=== PATIENT | male | born 1955 | race Caucasian/White ===

== ENCOUNTER 2017-11-02 11:18 | Outpatient (CLI) | payer BC, MEDICARE ==
[~2017-11-02] VITALS: Ht 172.7 cm; Wt 100.0 kg
--- NOTE | ~2017-11-02 | HEMODYNAMI ---
PATIENT:TRISTAN FERNANDEZ MEDICAL RECORD: [id number] : 57 LOCATION:[facility] ADMISSION DATE: 11/02/17 Generatedon:11/02/201714:30 Patient name: TRISTAN FERNANDEZ Patient #: [id number] SSN: DO B: 1955 Date of study: 11/02/2017 Page: Of Hemodynamic Procedure Report Patient Data Patient Demographics Procedure consent was obtained First Name: TRISTAN Gender: Male Last Name: JIM : 1955 [facility] Initial: NILDA Age: 62 year(s) Patient #: [id number] Race: Unknown Additional ID: [id number] Contact details Address: [address] [place] [address] [place] State: [place] City: [facility] Zip code: [address] Past Medical History Allergies Allergen Reaction Date Comments Reported Other allergy 11/02/2017 BETA BLOCKERS, STATINS, MORPHINE Admission Admission Data Admission Date: 11/02/2017 Admission Time: 11:18 Lab Results Lab Result Date: 11/02/2017 Lab Result Time: 0:00 Biochemistry Name Units Result Min Max BUN mg/dl 16 --(---*)-- 7 18 Creatinine mg/dl 1 --(--*-)-- 0.6 1.3 CBC Name Units Result Min Max Hemoglobin g/dl 15.3 --(-*--)-- 13.5 17.5 Procedure Procedure Types Cath Procedure Diagnostic Procedure [facility] w/Coronaries w/Grafts Sedation Charges Moderate Sedation up to 15 minutes Procedure Description Procedure Date Procedure Date: 11/02/2017 Procedure Start Time: 14:09 Procedure End Time: 14:28 Procedure Staff Name Function Vito Armas MD Performing Physician Chioma Shelton RT Monitor Yousuf Valentine RT Scrub Lyle Stewart RN Nurse Procedure Data Cath Procedure Fluoroscopy Diagnostic fluoroscopy Total fluoroscopy Time: 3.7 time: 3.7 min min Diagnostic fluoroscopy Total fluoroscopy dose: 761 dose: 761 mGy mGy Contrast Material Contrast Material Type Amount (ml) Isovue 300 86 Entry Location Entry Primary Successful Side Size Upsize Upsize Entry Closure Succes sful Closure Location (Fr) 1 (Fr) 2 (Fr) Remarks Device Remarks Femoral Right 5 Fr Exoseal artery Estimated blood loss: 5 ml Diagnostic catheters Device Type Used For End Catheter Placement MULTIPACK JL 4.0 5Fr Procedure catheter DIAGNOSTIC AR MOD 5Fr Procedure Catheter ([id number]) DIAGNOSTIC AR 2 MOD 5 Fr Procedure catheter ([id number]) DIAGNOSTIC IM 5Fr Procedure catheter ([id number]) MULTIPACK Pigtail 5 Fr Procedure catheter Procedure Complications No complications Procedure Medications Medication Administration Route Dosage 0.9% NaCl I.V. 100 ml/hr Oxygen etCO2 Nasal cannula 2 l/min Heparin Flush Bag added to field 2 bags (1000units/500ml NS) Lidocaine 2% added to field 20 Versed I.V. 2 mg Fentanyl I.V. 100 mcg Versed I.V. 1 mg Hemodynamics Rest HGB: 15.3 (g/dl) Heart Rate: 60 (bpm) Pressure Samples Time Site Value (mmHg) Purpose Heart Use Rate(bpm) 14:23 LV 151/0,23 Snapshot 64 14:23 AO 154/72(101) Pullback 67 14:23 LV 175/0,25 Pullback 67 Gradients Valve Time Site 1 Site 2 Mean SEP/DFP Peak To Heart Use (mmHg) (sec/min) Peak Rate (mmHg) (bpm) Aortic 14:23 LV AO 12 18 21 67 175/0,25 154/72(101) Calculations Valve P-P Mean Valve Index Valve Source Name Gradient Area Flow (cm2) Aortic 21 12 21 12 Snapshots Pre Cath Intra NCS Post Cath Vital Signs Time Heart Resp SPO2 etCO2 NIBP (mmHg) Rhythm Pain Sedation Rate (ipm) (%) (mmHg) Status Level (bpm) 13:55:26 71 17 100 0 177/97(140) NSR 0 (11) 10(A) , No pain 14:00:19 66 11 98 29.9 161/82(137) NSR 0 (11) 10(A) , No pain 14:05:07 73 15 96 35.1 143/75(113) NSR 0 (11) 10(A) , No pain 14:09:52 63 10 96 31.4 141/77(121) NSR 0 (11) 10(A) , No pain 14:14:39 60 14 97 38.1 141/72(113) NSR 0 (11) 9(A) , No pain 14:19:30 59 14 98 34.4 145/72(119) NSR 0 (11) 9(A) , No pain 14:24:19 61 16 98 36.6 130/75(105) NSR 0 (11) 10(A) , No pain 14:29:05 65 14 99 38.1 136/67(93) NSR 0 (11) 10(A) , No pain Medications Time Medication Route Dose Verified Delivered Reason Notes Eff ectiveness by by 13:59:44 0.9% NaCl I.V. 100 Lyle Lyle Per ml/hr Pat Stewart physician RN RN 13:59:54 Oxygen etCO2 2 Lyle Lyle Per Nasal l/min Pat Lanierigan physician cannula RN RN 14:00:07 Heparin Flush added 2 Lyle Lyle used for Bag to bags Yolandeigan Pat procedure (1000units/500ml field RN RN NS) 14:00:20 Lidocaine 2% added 20ml Lyle Lyle for local to vial Lorigan Lorigan anesthetic field RN RN 14:05:27 Versed I.V. 2 mg Lyle Lyle for Lorigan Lorigan sedation RN RN 14:05:36 Fentanyl I.V. 100 Lyle Lyle for mcg Lorigan Lorigan sedation RN RN 14:14:45 Versed I.V. 1 mg Lyle Lyle for Lorigan Lorigan sedation RN communications designer Log Time Note 13:38:11 Lyle Stewart RN sent for patient. Start room use. 13:38:32 Time tracking: Regular hours (M-F 7:00 - 5:00) 13:38:37 Plan of Care:Hemodynamics will remain stable., Cardiac rhythm will remain stable., Comfort level will be maintained., Respiratory function will remain adequate., Patient/ family verbilizes understanding of procedure., Procedure tolerated without complication., Recovers from procedure without complications.. 13:45:31 Signed procedure consent form obtained from patient. 13:45:39 H&P Date Dictated: 10/18/2017 Within 30 days and on chart., H&P Addendum completed by physician on day of procedure. (MUST COMPLETE FOR ALL OUTPATIENTS). 13:47:41 Lab Result : BUN 16 mg/dl 13:47:41 Lab Result : Creatinine 1 mg/dl 13:47:41 Lab Result : Hemoglobin 15.3 g/dl 13:49:27 Patient received from Pre/Post Procedure Room to CCL 1 Alert and oriented. Tansferred to table in Supine position. 13:49:28 Warm blankets applied, and ira hugger turned on for patient comfort. 13:49:28 Correct patient and procedure confirmed by team. 13:49:30 ECG and BP/O2 sat monitors applied to patient. 13:54:20 Vital chart was started 13:58:19 Full Disclosure recording started 13:58:20 Pre-procedure instructions explained to patient. 13:58:20 Pre-op teaching completed and patient verbalized understanding. 13:58:22 Family in patients room. 13:58:23 Patient NPO since Midnight. 13:58:38 Patient allergic to Other allergyBETA BLOCKERS, STATINS, MORPHINE 13:58:41 Is the patient allergic to Iodine/contrast media? No. 13:58:43 Is patient on blood thinner?No 13:58:44 Patient diabetic? Yes. 13:58:45 If diabetic: On Metformin? No 13:58:50 Previous problem with sedation/anesthesia? No ? 13:58:51 Snore? Yes 13:58:52 Sleep apnea? No 13:58:53 Deviated septum? No 13:58:54 Opens mouth fully? Yes 13:58:55 Sticks out tongue? Yes 13:58:56 Airway obstruction? No ? 13:59:00 Dentures? Yes IN TIGHT 13:59:05 Pre procedure: right dorsailis pedis pulse 2+ Normal; easily identifiable; not easily obliterated 13:59:09 Patient pain scale 0/10 ?. 13:59:21 IV patent on arrival in left hand with 0.9% NaCl at O. 13:59:24 Lab results completed and on chart. 13:59:25 Right groin area was prepped with chlora-prep and draped in sterile fashion 13:59:26 Alarms reviewed by R. N. 13:59:26 Sharps counted by scrub and verified by R.N. 13:59:29 Use device set Femoral Dx 13:59:29 ACIST Syringe (98434) opened to sterile field. 13:59:30 Bag Decanter (2001S) opened to sterile field. 13:59:30 Medline Cath Pack ([id number]) opened to sterile field. 13:59:32 ACIST Manifold (74484) opened to sterile field. 13:59:33 ACIST Hand Control (31468) opened to sterile field. 13:59:39 Tegaderm 4 x 4 (1626W) opened to sterile field. 13:59:40 DIAGNOSTIC WIRE .035 260cm J wire (020825) opened to sterile field. 13:59:41 DIAGNOSTIC Multipack 5Fr catheter set (UP5160) opened to sterile field. 13:59:43 SHEATH Prelude 5Fr 0.035 ([id number]-1B-66-035) opened to sterile field. 13:59:44 0.9% NaCl 100 ml/hr I.V. was administered by Lyle Stewart RN; Per physician; 13:59:54 Oxygen 2 l/min etCO2 Nasal cannula was administered by Lyle Stewart RN; Per physician; 14:00:07 Heparin Flush Bag (1000units/500ml NS) 2 bags added to field was administered by Lyle Stewart RN; used for procedure; 14:00:20 Lidocaine 2% 20ml vial added to field was administered by Lyle Stewart RN; for local anesthetic; 14:04:18 Baseline sample Acquired. 14:04:24 Rhythm: sinus rhythm 14::26 --------ALL STOP TIME OUT------ 14:04:26 Final Timeout: patient, procedure, and site verified with staff and physician. All members of the team are in agreement. 14:04:29 Right groin site verified by team. 14:04:31 Physical assessment completed. ASA score P 2 - A patient with mild systemic disease as per Vito Armas MD. 14:04:34 Sedation plan: IV Moderate Sedation Medication:Versed, Fentanyl 14:05:27 Versed 2 mg I.V. was administered by Lyle Stewart RN; for sedation; 14:05:36 Fentanyl 100 mcg I.V. was administered by Lyle Stewart RN; for sedation; 14:09:03 Zero performed for pressure channel P1 14:09:24 Procedure started. 14:09:29 Local anesthetic to right femoral artery with Lidocaine 2% by Vito Armas MD.INITIAL ACCESS ONLY 14:11:33 A 5 Fr sheath was inserted into the Right Femoral artery 14:12:23 A MULTIPACK JL 4.0 5Fr catheter was advanced over the wire and used for Procedure. 14:13:09 LCA angiography performed. 14:13:33 Catheter exchanged over wire. 14:14:38 A DIAGNOSTIC AR MOD 5Fr Catheter (318772S) was advanced over the wire and used for Procedure. 14:14:45 Versed 1 mg I.V. was administered by Lyle Stewart RN; for sedation; 14:14:52 RCA angiography performed. 14:15:57 SVG TO RAMUS AND OM ANGIOGRAPHY PERFORMED 14:15:59 Catheter exchanged over wire. 14:16:35 A DIAGNOSTIC AR 2 MOD 5 Fr catheter ([id number]) was advanced over the wire and used for Procedure. 14:16:55 SVG TO RAMUS AND OM ANGIOGRAPHY PERFORMED 14:18:26 Catheter exchanged over wire. 14:18:38 A DIAGNOSTIC IM 5Fr catheter ([id number]) was advanced over the wire and used for Procedure. 14:21:40 FRANZ to LAD angiography performed. 14:21:57 Catheter exchanged over wire. 14:22:31 A MULTIPACK Pigtail 5 Fr catheter was advanced over the wire and used for Procedure. 14:22:40 Injector settings: Ml/sec: 10, Volume: 20, 14:22:45 LV gram done using FOSTER 14:23:29 LV hemodynamics recorded. 14:23:41 EF : 45 % 14:24:44 Catheter removed. 14:24:59 EXOSEAL 5Fr (EX500) opened to sterile field. 14:25:15 Sheath removed intact; hemostasis achieved with Exoseal to the Right Femoral artery. 14:25:52 Procedure ended.(Physican Out) 14:26:01 Fluoroscopy time 03.70 minutes. 14:26:04 Fluoroscopy dose: 761 mGy 14:26:04 Flurop Dose total: 761 14:26:10 Contrast amount:Isovue 300 86ml. 14:26:16 Sharps counted by scrub and verified by R.N. 14:26:33 Post-op/insertion site Right Femoral artery dressed using a 4 x 4 and Tegaderm. 14:26:37 Post right femoral artery:stable, soft, clean and dry 14:27:00 Post procedure: right dorsailis pedis pulse 2+ Normal; easily identifiable; not easily obliterated. 14:27:02 Post-procedure physical assessment completed. ASA score P 2 - A patient with mild systemic disease as per Vito Armas MD. 14:27:06 Post procedure rhythm: unchanged. 14:27:08 Estimated blood loss: 5 ml 14:27:09 Post procedure instruction explained to patient.Patient verbalizes understanding. 14:27:09 Patient needs reinforcement of post procedure teaching. 14:27:39 Procedure type changed to Cath procedure, Diagnostic procedure, LHC, LHC w/Coronaries w/Grafts, Sedation Charges, Moderate Sedation up to 15 minutes 14:28:18 Procedure and supply charges have been captured, reviewed, submitted and are correct. 14:28:21 Procedure Complication : No complications 14:28:23 Vital chart was stopped 14:28:26 See physician's report for complete and final results. 14:28:28 Report given to Pre/Post Procedure Room. 14:28:30 Patient transfered to Pre/Post Procedure Room with Bed. 14:28:31 Procedure ended. 14:28:31 Full Disclosure recording stopped 14:28:35 End room use (Document Last) Device Usage Item Name Manufacture Quantity Catalog Number Hospital Part Current M inimal Lot# / Charge Number Stock Stock Serial# Code ACIST Syringe Acist 1 14265 015719 267247 [id number] 2 0 (40825) [employer] Bag Decanter Microtek 1 2001S 045282 20565 379541 5 (2001S) [employer] Medline Cath Cardinal 1 [id number] 958731 02818 909380 5 [facility] ([id number]) ACIST Manifold Acist 1 04226 075198 477733 872419 5 (36593) [employer] ACIST Hand Acist 1 05631 085429 765694 017053 5 Control (21668) [employer] Tegaderm 4 x 4 3M 1 1626W 921904 531880 879473 5 (1626W) DIAGNOSTIC WIRE St Nael 1 770972 619045 927837 295968 3 0 .035 260cm J wire (779967) DIAGNOSTIC Cardinal 1 [id number] 045393 85171 722699 3 0 Multipack 5Fr Health catheter set ([id number]) SHEATH Prelude Merit 1 [id number]-[id number] 409711 270820 803468 5 5Fr 0.035 Medical ([id number]-3J-87-035) MULTIPACK JL Cardinal 1 365485 5 4.0 5Fr Health catheter DIAGNOSTIC AR Cardinal 1 [id number] 007178 963200 192661 1 5 MOD 5Fr Health Catheter (826383E) DIAGNOSTIC AR 2 Cardinal 1 [id number] 578678 586490 847064 2 0 MOD 5 Fr Health catheter ([id number]) DIAGNOSTIC IM Cardinal 1 [id number] 757944 197652 884243 5 5Fr catheter Health (634332O) MULTIPACK Cardinal 1 783384 5 Pigtail 5 Fr Health catheter EXOSEAL 5Fr Cardinal 1 EX500 640944 562503 322937 1 0 (EX500) Health Signature Audit [place] Stage Time Signature Unsigned Intra-Procedure 11/02/2017 Chioma Shelton 2:30:28 PM RT(R) Signatures Monitor : Chioma Shelton Signature : RT Date : Time : [place] [id number] [place] [address]
[2017-11-02] MEDS ORDERED: FUROSEMIDE40 MG PO (11:52)
[2017-11-02] MEDS ORDERED: LISINOPRIL10 MG PO (11:52)
[2017-11-02] MEDS ORDERED: LEVOTHYROXINE112 MCG PO (11:53)
[2017-11-02] MEDS ORDERED: NOVOLOG100 U/M1 SC (11:53)
[2017-11-02] MEDS ORDERED: BASAGLAR K100 UNIT/1 SC (11:53)
[2017-11-02] MEDS ORDERED: VITAMIN B-1000 MCG/M SQ (11:54)
[2017-11-02 12:04] VITALS: BP 117/81; Ht 172.7 cm; Wt 100.0 kg
[2017-11-02 12:06] LABS: BASOPHILS 0.6 % (0-2); EOSINOPHILS 3.2 % (0-7); HEMATOCRIT 43.9 % (42.0-54.0); HEMOGLOBIN 15.3 g/dL (13.5-17.5); IMMATURE GRANULOCYTES 0.2 % (0-5); MCH 30.9 pg (26.0-34.0); MCHC 34.9 g/dL (31.0-37.0); MCV 88.7 fL (80.0-100.0); MEAN PLATELET VOLUME 11.3 fL (7.4-10.4); MONOCYTES 9.1 % (2-11); NEUTROPHILS 59.9 % (40-80); RBC 4.95 10x6/uL (4.20-6.10); RDW 12.8 % (11.5-14.5); WBC 6.3 10x3/uL (4.8-10.8)
[2017-11-02 12:07] LABS: PLATELET COUNT 177 10x3/uL (130-400)
[2017-11-02 12:27] LABS: CALC OSMOLALITY 285 mosm/kg (275-300); CALCIUM 9.4 mg/dL (8.5-10.1); CARBON DIOXIDE 27.3 mmol/L (21.0-32.0); CHLORIDE - SERUM 105 mmol/L (98-107); GLUCOSE 172 mg/dL (74-106); SODIUM 141 mmol/L (136-145); UREA NITROGEN 16 mg/dL (7-18); eGFR NON AFRICAN AMERICAN 81 mL/min (90-120)
== END 2017-11-02 17:00 | disposition home or self-care (01) ==
LOC: D.CATH 11:18
PROVIDERS: Internal Medicine Cardiovascular Disease
DX: I25.119 Atherosclerotic heart disease of native coronary artery with unspecified angina pectoris (principal); Z01.812 Encounter for preprocedural laboratory examination; Z95.1 Presence of aortocoronary bypass graft